=== PATIENT | female | born 1995 | race American Indian/Alaskan Native ===

== ENCOUNTER 2016-12-09 00:17 | Outpatient (CLI) | payer MEDICAID, OTHER ==
[2016-12-09] MEDS ORDERED: LACTATED RINGERS 500 ML IV ONE (00:43)
[2016-12-09 01:29] VITALS: BP 117/60
[2016-12-09 01:50] LABS: Bilirubin,Urine NEG (Negative); Blood,Urine NEG (Negative); Ketones,Urine NEG (Negative); Leukocyte Esterase,Urine TR (Negative); Mucus,Urine FEW /HPF; Nitrite,Urine NEG (Negative); Protein,Urine <15 mg/dL mg/dL (Negative); Urobilinogen,Urine < 2.0 mg/dL (<2.0)
== END 2016-12-09 02:20 | disposition home or self-care (01) ==
LOC: EDSTATUS 00:29 → TRG 00:32
PROVIDERS: ATTEND Obstetrics & Gynecology
DX: O47.02 False labor before 37 completed weeks of gestation, second trimester (principal); Z3A.21 21 weeks gestation of pregnancy
CPT/HCPCS: 81001; J7120

== ENCOUNTER 2017-03-11 23:18 | Outpatient (CLI) | payer MEDICAID ==
[2017-03-11 23:35] VITALS: BP 115/64
[2017-03-11] MEDS ORDERED: LACTATED RINGERS 1,000 ML IV ONE (23:40)
[2017-03-12 00:17] LABS: Bacteria,Urine 1+ /HPF (Negative); Bilirubin,Urine NEG (Negative); Blood,Urine NEG (Negative); Ketones,Urine TR mg/dL (Negative); Leukocyte Esterase,Urine LG (Negative); Mucus,Urine 2+ /HPF; Nitrite,Urine NEG (Negative); Urobilinogen,Urine < 2.0 mg/dL (<2.0)
== END 2017-03-12 01:10 | disposition home or self-care (01) ==
LOC: TRG 23:18
PROVIDERS: ATTEND Obstetrics & Gynecology
DX: O47.03 False labor before 37 completed weeks of gestation, third trimester (principal); Z3A.34 34 weeks gestation of pregnancy
CPT/HCPCS: 59025; 81001

== ENCOUNTER 2017-04-13 14:23 | Inpatient (IN) | payer MEDICAID ==
[2017-04-13] MEDS ORDERED: MINERAL OIL PO PRN (14:58)
[2017-04-13] MEDS ORDERED: NARCAN 0.4 MG/1 ML IV PRN (14:58)
[2017-04-13] MEDS ORDERED: BRETHINE IVP PRN (14:58)
[2017-04-13] MEDS ORDERED: ePHEDrine SULFATE IV PRN ×2 (14:58→16:59)
[2017-04-13] MEDS ORDERED: XYLOCAINE 2% INFILTRATI ONE (14:58)
[2017-04-13] MEDS ORDERED: STADOL IV PRN (14:58)
[2017-04-13] MEDS ORDERED: ZOFRAN IV PRN ×2 (14:58→17:58)
[2017-04-13] MEDS ORDERED: POLYCILLIN/NS 2 GM/100 ML 2 GM/100 ML BAG IV ONE (14:58)
[2017-04-13] MEDS ORDERED: BRETHINE SUB-Q PRN (14:58)
[2017-04-13] MEDS ORDERED: SUBLIMAZE IV PRN (14:58)
[2017-04-13] MEDS ORDERED: PITOCin/NS 20 UNIT/1000ML DRIP 20 UNITS/1,000 ML BAG IV SCH ×2 (15:00→18:00)
[2017-04-13] MEDS ORDERED: LACTATED RINGERS 1,000 ML IV SCH (15:00)
[2017-04-13] MEDS ORDERED: PITOCin/NS 30 UNIT/500ML 30 UNITS/500 ML BAG IV SCH ×2 (15:00)
[2017-04-13] MEDS ORDERED: LACTATED RINGERS 1,000 ML ONE (15:03)
--- NOTE | 2017-04-13 15:03 | History and Physical Report ---
History of Present Illness Date of examination: 04/13/17 Chief complaint: Labor History of present illness: Pt is a 21yo BF EDC 04/21/17; EGA 38 6/7 weeks presents from the office complaining of contractions and Cx /V/-2 She received prenatalcare at [facility] since 13 weeks and course has been unremarkable except for hx of syphilis treated in 2013. records are available and GBS is Negative. Past History Past Medical History: no pertinent history Past Surgical History: no surgical history [employer] History: syphilis, trichomonas Social history: no significant social history, single - Obstetrical History Expected Date of Delivery: 04/21/17 Actual Gestation: 38 Week(s) 6 Day(s) : 2 Medications and Allergies Allergies Allergy/AdvReac Type Severity Reaction Status Date / Time No Known Allergies Allergy Verified 12/20/13 02:12 Home Medications Medication Instructions Recorded Confirmed Last Taken Type Fluconazole [Diflucan] 150 mg PO QDAY #1 tablet 12/20/13 06/18/14 Unknown Rx metroNIDAZOLE [Flagyl] 500 mg PO Q12H #20 tablet 12/20/13 06/18/14 Unknown Rx Lidocain2.5%/Prilocai2.5% [Emla] 5 gm TP PRN PRN #1 tube 06/20/14 Unknown Rx Acetaminophen [Tylenol] 500 mg PO Q6HR PRN #30 tablet 09/12/16 Unknown Rx No.40/Iron/FA/Dha [Cvs 1 each PO QDAY #60 capsule 09/12/16 Unknown Rx Multi-Dha Softgel] Active Meds: Active Medications Butorphanol Tartrate (Stadol) 2 mg IV Q2H PRN PRN Reason: Pain , Severe (7-10) Ephedrine Sulfate (Ephedrine Sulfate) 10 mg IV Q2M PRN PRN Reason: Hypotension Stop: 04/13/17 15:03 Fentanyl (Sublimaze) 100 mcg IV Q2H PRN PRN Reason: Labor Pain Ampicillin Sodium (Polycillin/Ns 1 Gm/50 Ml) 1 gm in 50 mls @ 100 mls/hr IV Q4HR SLIME PRN Reason: Protocol Ampicillin Sodium (Polycillin/Ns 2 Gm/100 Ml) 2 gm in 100 mls @ 100 mls/hr IV ONCE ONE PRN Reason: Protocol Stop: 04/13/17 15:57 Lactated Ringer's (Lactated Ringers) 1,000 mls @ 125 mls/hr IV DIRECT SLIME Lidocaine (Xylocaine 2%) 20 ml INFILTRATI ONCE ONE Stop: 04/13/17 14:59 Mineral Oil (Mineral Oil) 30 ml PO QHS PRN PRN Reason: Constipation Naloxone HCl (Narcan 0.4 Mg/1 Ml) 0.1 mg IV Q2MIN PRN PRN Reason: Res Rate </= 8 or 02 SAT < 92% Review of Systems All systems: negative - Physical Exam Breasts: Positive: deferred Cardiovascular: Regular rate Lungs: Positive: Clear to auscultation Abdomen: Positive: normal appearance Genitourinary (Female): Positive: normal external genitalia Uterus: Positive: enlarged Extremities: Positive: normal - Obstetrical FHR: category 1 Uterine Contraction Monitor Mode: External Cervical Dilatation: 7 Cervical Effacement Percentage: 90 station: -2 Uterine Contraction Pattern: Irregular Uterine Tone Measurement Phase: Contraction Uterine Contraction Intensity: Moderate Results Result Diagrams: 04/13/17 14:58 All other labs normal. Assessment and Plan - Patient Problems (1) 39 weeks gestation of Onset Date: 04/13/17 Current Visit: Yes Status: Acute Plan to address problem: A: IUP @ 38 6/7 weeks in labor P: Admit to L&D for expectant vaginal delivery (2) Active labor at term Onset Date: 04/13/17 Current Visit: No Status: Acute
[2017-04-13 15:31] LABS: Mean Corpuscular HGB Conc 30 % (30-34); Mean Corpuscular Volume 71 fl (79-97); Platelet Count 204 K/mm3 (140-440); Red Blood Count 4.24 M/mm3 (3.65-5.03); White Blood Count 13.3 K/mm3 (4.5-11.0)
[2017-04-13 15:33] LABS: Hematocrit 29.9 % (30.3-42.9); Hemoglobin 8.9 gm/dl (10.1-14.3); Mean Corpuscular Hemoglobin 21 pg (28-32); Red Cell Distribution Width 20.1 % (13.2-15.2)
[2017-04-13] MEDS ORDERED: ePHEDrine SULFATE ONE (16:31)
[2017-04-13] MEDS ORDERED: NARCAN 2 MG/2 ML IV PRN (16:59)
--- NOTE | 2017-04-13 16:59 | Anesthesia Consultation ---
Anesthesia Consult and Med Hx Date of service: 04/13/17 - Pulmonary Exam CTA: Yes - Cardiac Exam Cardiac Exam: RRR - Pre-Operative Health Status ASA Pre-Surgery Classification: ASA2 Proposed Anesthetic Plan: Epidural, Spinal - Pulmonary Hx Asthma: No COPD: No Hx Pneumonia: No - Cardiovascular System Hx Hypertension: No Hx Coronary Artery Disease: No Hx Heart Attack/AMI: No Hx Angina: No - Central Nervous System Hx Seizures: No Hx Psychiatric Problems: No - Endocrine Hx Renal Disease: No Hx End Stage Renal Disease: No Hx Hypothyroidism: No Hx Hyperthyroidism: No - Hematic Hx Anemia: Yes (current ) Hx Sickle Cell Disease: No - Other Systems Hx Alcohol Use: No
[2017-04-13] MEDS ORDERED: fentaNYL-BUPIV 2 MCG/ML-0.125% 200 MCG/100 ML BAG EPIDURAL SCH (17:00)
[2017-04-13] MEDS ORDERED: PHENERGAN PR PRN (17:58)
[2017-04-13] MEDS ORDERED: DULCOLAX PR PRN (17:58)
[2017-04-13] MEDS ORDERED: MILK OF MAGNESIA PO PRN (17:58)
[2017-04-13] MEDS ORDERED: NORCO 5/325 PO PRN (17:58)
[2017-04-13] MEDS ORDERED: TYLENOL PO PRN (17:58)
[2017-04-13] MEDS ORDERED: LANSINOH TP PRN (17:58)
[2017-04-13] MEDS ORDERED: BENADRYL PO PRN (17:58)
[2017-04-13] MEDS ORDERED: TUCKS PAD TP PRN (17:58)
[2017-04-13] MEDS ORDERED: PHENERGAN PO PRN (17:58)
[2017-04-13] MEDS ORDERED: SODIUM CHLORIDE FLUSH SYRINGE 10 ML IV SCH (18:00)
--- NOTE | 2017-04-13 18:06 | Procedure Note ---
OB Delivery Note - Delivery Date of Delivery: 04/13/17 Surgeon: MAGDALENA WADE Estimated blood loss: 100cc - Vaginal Delivery presentation: vertex Delivery position: OA Intrapartum events: precipitous labor- <3hr Delivery induction: AROM Delivery augmentation: rupture of membranes Delivery monitor: external FHT, external uterine Route of delivery: Delivery placenta: spontaneous Delivery cord: 3 umbilical vessels Episiotomy: none Delivery laceration: 1st degree (left labial) Delivery repair: vicryl Anesthesia: epidural Delivery comments: Infant delivered OA and placed on Mom's chest for [id number] bonding and delayed cord clamping. - A at 1 minute: 8 at 5 minutes: 9 Infant Gender: Female (3464gms)
[2017-04-13] MEDS ORDERED: POLYCILLIN/NS 1 GM/50 ML 1 GM/50 ML BAG IV SCH (19:00)
[2017-04-13] MEDS: FEOSOL PO SCH (21:24)
[2017-04-13] MEDS: COLACE PO SCH (21:25)
[2017-04-13] MEDS: MOTRIN PO SCH (21:29)
[2017-04-14] MEDS: MOTRIN PO SCH ×3 (00:22→16:53)
[2017-04-14 05:30] LABS: Hematocrit 25.7 % (30.3-42.9); Hemoglobin 7.8 gm/dl (10.1-14.3)
[2017-04-14] MEDS ORDERED: BOOSTRIX IM ONE ×2 (06:00→12:00)
[2017-04-14] MEDS: COLACE PO SCH ×2 (08:53→21:45)
[2017-04-14] MEDS: PRENATAL VITAMIN PO SCH (08:54)
[2017-04-14] MEDS: FEOSOL PO SCH ×2 (08:54→21:44)
--- NOTE | 2017-04-14 09:32 | Progress Note ---
Assessment and Plan PPD# 1 s/p -Doing well P: -Continue routine post care -Anticipate discharge in 24-48 hours - Patient Problems (1) Vaginal delivery Current Visit: No Status: Acute Subjective - Subjective Date of service: 04/14/17 Principal diagnosis: PPD# 1 Interval history: Patient seen and examined, stable and well. Patient reports: appetite normal, voiding normally, pain well controlled, flatus , ambulating normally, no dizzy ambulation, no nauseated Lorida: doing well Objective - Vital Signs Latest vital signs: Vital Signs Temp Pulse Resp BP BP Pulse Ox 04/14/17 05:40 16 04/14/17 04:00 98.6 F 77 16 101/71 04/14/17 00:22 18 04/14/17 00:00 98.6 F 62 16 117/62 04/13/17 21:29 16 04/13/17 19:19 76 120/68 04/13/17 19:04 71 124/66 04/13/17 18:49 63 121/60 04/13/17 18:34 85 117/57 04/13/17 18:32 97.2 F L 89 16 117/61 04/13/17 18:19 96 H 123/61 04/13/17 18:04 89 117/61 04/13/17 17:49 90 120/71 04/13/17 17:45 114 H 100 04/13/17 17:42 105 H 81 L 04/13/17 17:40 91 H 100 04/13/17 17:35 95 H 100 04/13/17 17:34 90 124/72 04/13/17 17:30 91 H 100 04/13/17 17:25 94 H 0 L 04/13/17 17:20 80 100 04/13/17 17:19 77 111/61 04/13/17 17:15 90 100 04/13/17 17:10 77 100 04/13/17 17:05 88 100 04/13/17 17:03 83 110/59 04/13/17 17:00 93 H 100 04/13/17 16:58 88 118/67 04/13/17 16:55 111 H 100 04/13/17 16:52 100 H 112/59 04/13/17 16:50 100 H 109/56 100 04/13/17 16:49 92 H 109/53 09/12/17 16:45 95 H 100 04/13/17 16:40 87 04/13/17 16:35 76 04/13/17 16:30 101 H 04/13/17 16:25 95 H 100 04/13/17 16:20 77 04/13/17 16:15 102 H 100 04/13/17 16:10 83 100 04/13/17 16:05 98 H 99 04/13/17 16:00 79 04/13/17 15:55 78 04/13/17 15:50 84 100 04/13/17 15:33 98.3 F 86 16 119/72 04/13/17 15:14 107 H 120/53 Intake and Output 04/13/17 04/14/17 04/14/17 22:59 06:59 14:59 Intake Total 800 Output Total 800 1400 Balance -800 -600 Intake: Oral 500 Intake, Free Water 300 Output: Urine 800 1400 Void 800 1400 Other: Total, Intake Amount 250 Total, Output Amount 800 800 # Voids Void 1 1 Weight 71.214 kg Estimated Blood Loss 100 - Exam Abdomen: Present: normal appearance, soft. Absent: distention, tenderness, guarding, rigidity Uterus: Present: fundal height below umbilicus. Absent: tenderness Extremities: Present: normal - Labs Labs: Abnormal lab results 04/13/17 04/14/17 Range/Units 14:58 04:59 WBC 13.3 H (4.5-11.0) K/mm3 Hgb 8.9 L 7.8 L (10.1-14.3) gm/dl Hct 29.9 L 25.7 L (30.3-42.9) % MCV 71 L (79-97) fl MCH 21 L (28-32) pg RDW 20.1 H (13.2-15.2) %
--- NOTE | 2017-04-14 09:34 | Discharge Summary ---
Providers - Providers Date of Admission: 04/13/17 15:02 Date of discharge: 04/15/17 Attending physician: MAGDALENA WADE Primary care physician: MAGDALENA WADE Hospitalization Reason for admission: active labor Delivery: Episiotomy: none Laceration: 1st degree Other procedures: none complications: none Discharge diagnosis: IUP at term delivered [place] baby: female Hospital course: Uncomplicated hospital course Condition at discharge: Good Disposition: DC-01 TO HOME OR SELFCARE - Discharge Diagnoses (1) Vaginal delivery Status: Acute Plan - Provider Discharge Summary Activity: no sex for 6 weeks, no heavy lifting 4 weeks, no strenuous exercise Diet: routine Additional instructions: [] Smoking cessation referral if applicable(refer to patient education folder for contact #) [] Refer to [facility] Booklet Call your doctor immediately for: * Fever > 100.5 * Heavy vaginal bleeding ( >1 pad per hour) * Severe persistent headache * Shortness of breath * Reddened, hot, painful area to leg or breast * Drainage or odor from incision. * Keep incision clean and dry at all times and follow doctor's instructions regarding bathing/showering - Follow up plan Follow up: MAGDALENA WADE MD [Primary Care Provider] - 6 Weeks
--- NOTE | 2017-04-14 09:34 | Progress Note ---
Subjective Date of service: 04/14/17 Principal diagnosis: PPD# 1 Interval history: 1st POD after normal vaginal delivery Patient is in the bed, comfortable. Pain is well controlled with pain meds. Ambulated well. No residual neurological deficit. No anesthesia complications Objective - Constitutional Vitals: Vital Signs - 12hr 04/14/17 04/14/17 04/14/17 00:00 00:22 04:00 Temperature 98.6 F 98.6 F Pulse Rate 62 77 Respiratory 16 18 16 Rate Blood Pressure 117/62 101/71 [Left] 04/14/17 05:40 Temperature Pulse Rate Respiratory 16 Rate Blood Pressure [Left] - Labs CBC & Chem 7: 04/14/17 04:59 Labs: Abnormal lab results 04/13/17 04/14/17 Range/Units 14:58 04:59 WBC 13.3 H (4.5-11.0) K/mm3 Hgb 8.9 L 7.8 L (10.1-14.3) gm/dl Hct 29.9 L 25.7 L (30.3-42.9) % MCV 71 L (79-97) fl MCH 21 L (28-32) pg RDW 20.1 H (13.2-15.2) %
[2017-04-14] MEDS ORDERED: M-M-R II VACCINE SUB-Q ONE (17:58)
[2017-04-15] MEDS: MOTRIN PO SCH ×3 (05:08→11:40)
[2017-04-15] MEDS: PRENATAL VITAMIN PO SCH (11:40)
[2017-04-15] MEDS: COLACE PO SCH (11:40)
[2017-04-15] MEDS: FEOSOL PO SCH (11:40)
[2017-04-15 17:33] VITALS: BP 113/64
== END 2017-04-15 16:00 | disposition home or self-care (01) | DRG 775 ==
LOC: TRG 14:23 → LD 15:02 → OB 20:20
PROVIDERS: ADMIT Obstetrics & Gynecology; ATTEND Obstetrics & Gynecology
PROC: 10E0XZZ Delivery of Products of Conception, External Approach (ICD-10-PCS; principal; 2017-04-13)
PROC: 10907ZC Drainage of Amniotic Fluid, Therapeutic from Products of Conception, Via Natural or Artificial Opening (ICD-10-PCS; 2017-04-13)
PROC: 0HQ9XZZ Repair Perineum Skin, External Approach (ICD-10-PCS; 2017-04-13)
PROC: 3E0R3BZ Introduction of Anesthetic Agent into Spinal Canal, Percutaneous Approach (ICD-10-PCS; 2017-04-13)
PROC: 00HU33Z Insertion of Infusion Device into Spinal Canal, Percutaneous Approach (ICD-10-PCS; 2017-04-13)
PROC: 3E0234Z Introduction of Serum, Toxoid and Vaccine into Muscle, Percutaneous Approach (ICD-10-PCS; 2017-04-14)
DX: O62.3 Precipitate labor (principal); O70.0 First degree perineal laceration during delivery; Z37.0 Single live birth; Z23 Encounter for immunization; Z3A.38 38 weeks gestation of pregnancy
CPT/HCPCS: 36415; 85014; 85018; 85027; 86592; 86850; 86900; 86901; 90471; 90715; 99211; A6250; G0463; J0290; J2590; J7120

== ENCOUNTER 2021-12-10 00:13 | Outpatient (CLI) | payer MEDICAID ==
[2021-12-10 01:09] VITALS: BP 109/68
--- NOTE | 2021-12-10 02:39 | Ultrasound Report ---
ULTRASOUND OBSTETRIC LIMITED INDICATION / CLINICAL INFORMATION: vaginal bleeding. Clinical Gestational Age (GA) in weeks, days: 38, 2 TECHNIQUE: Transabdominal. COMPARISON: None available. FINDINGS: HEART RATE (beats per minute): 145 AMNIOTIC FLUID INDEX (cm) = 11.9 (normal = 7-24 cm) PRESENTATION: Cephalic. ADDITIONAL FINDINGS: No evidence of abruption. There is a grade 2 anterior placenta. Biparietal Diameter = 9.4 cm = 38, 0 weeks, days Head Circumference = 32.5 cm = 36, 6 weeks, days Abdominal Circumference = 31.9 cm = 35, 5 weeks, days Femur Length = 7.3 cm = 37, 4 weeks, days Average Ultrasound Age (AUA) = 37, 0 weeks, days Estimated Weight in grams (if calculated): 2984 Estimated Weight Growth Percentile (if calculated): 23 IMPRESSION: 1. No significant abnormality. Signer Name: Bassam Narvaez DO Signed: 12/10/2021 2:35 AM Workstation Name: [id number]
== END 2021-12-10 02:26 | disposition home or self-care (01) ==
LOC: TRG 00:13 → APU 00:21 → TRG 02:26
PROVIDERS: ATTEND Obstetrics & Gynecology Gynecology
DX: O46.93 Antepartum hemorrhage, unspecified, third trimester (principal); Z3A.38 38 weeks gestation of pregnancy
CPT/HCPCS: 76816